=== PATIENT | male | born 1965 | race Caucasian/White ===

== ENCOUNTER 2017-02-15 23:44 | Emergency (ER) | payer OTHER ==
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
== END 2017-02-16 01:36 | disposition home or self-care (01) ==
LOC: ER 23:44
DX: S20.219A Contusion of unspecified front wall of thorax, initial encounter (principal); S80.11XA Contusion of right lower leg, initial encounter; V43.62XA Car passenger injured in collision with other type car in traffic accident, initial encounter